=== PATIENT | female | born 1950 | race Caucasian/White ===

== ENCOUNTER 2016-12-02 17:39 | Observation (INO) | payer OTHER ==
[2016-12-02 18:19] VITALS: O2SAT 99
[2016-12-02] MEDS ORDERED: Sodium Chloride 0.9% 1,000 ML IV STA (19:15)
--- NOTE | 2016-12-02 19:19 | C.PDOC ---
History Of Present Illness 66 y/o F c PMHx HTN, DM, s/p cholecystectomy p/w abdominal pain x 1 day. Pain is epigastric, deep, unable to be characterized, associated with NBNB vomiting x 3. Reports normal BM last night. Denies fever, chills, chest pain, dyspnea, dysuria. Time Seen by Provider: 12/02/16 19:08 Chief Complaint (Nursing): Abdominal Pain Past Medical History Vital Signs: Last Vital Signs Temp 98 F 12/02/16 18:13 Pulse 94 H 12/02/16 18:13 Resp 22 12/02/16 18:13 BP 182/99 H 12/02/16 18:13 Pulse Ox 99 12/02/16 21:59 - Medical History PMH: HTN (not on meds due to lack of insurance) Surgical History: Cholecystectomy (2016) Family History: States: No Known Family Hx - Social History Hx Alcohol Use: No Hx Substance Use: No Review Of Systems Except As Marked, All Systems Reviewed And Found Negative. Constitutional: Negative for: Fever Cardiovascular: Negative for: Chest Pain Physical Exam - Physical Exam Additional Physical Exam Comments: Constitutional: No acute distress. Head: Normocephalic. Atraumatic. Eyes: PERRL. EOMI. ENT: Moist mucous membranes. Neck: Supple. Cardiovascular: Regular rate. Radial pulses 2+ bilaterally. Chest: No tenderness. Respiratory: Clear to auscultation bilaterally. GI: Epigastric tenderness with guarding. Soft. Nondistended. Back: No CVA tenderness. Musculoskeletal: No tenderness or swelling of extremities. Skin: No rash. Neurologic: Alert, no focal deficit. ED Course And Treatment - Laboratory Results Result Diagrams: 12/02/16 19:25 12/02/16 19:25 O2 Sat by Pulse Oximetry: 99 Medical Decision Making Medical Decision Making: IMPRESSION: Fatty liver, no acute solid visceral abnormality; cholecystectomy ; ileus and possible enteritis, no CT findings of appendicitis or diverticulitis Labs unremarkable. Will discharge home on antibiotics, instructed to f/u with PMD, instructed to return to ER for worsening pain, fever, vomiting, dyspnea, chest pain, or any other problem. ED OBSERVATION Discharge: Yes Date of observation admission: 12/02/16 Time of observation admission: 19:15 - Observation admission statement Patient is being placed in observation because:: Chief complaint - Goals of Observation Goals of observation are:: CT - Progress Note Progress Note: [address] returned. Disposition - Disposition Disposition: HOME/ ROUTINE Disposition Time: 19:15 Condition: STABLE - Clinical Impression Clinical Impression: Enteritis - Scribe Statement The provider has reviewed the documentation as recorded by the Scribe Elena Hernadez All medical record entries made by the Scribe were at my direction and personally dictated by me. I have reviewed the chart and agree that the record accurately reflects my personal performance of the history, physical exam, medical decision making, and the department course for this patient. I have also personally directed, reviewed, and agree with the discharge instructions and disposition.
[2016-12-02 19:27] LABS: BASO % 0.4 % (0.0-2.0); EOS # 0.1 K/uL (0.0-0.7); HEMATOCRIT 44.6 % (34.0-47.0); LYMPH # 0.9 K/uL (1.0-4.3); LYMPH % 12.7 % (20.0-40.0); MEAN CELL VOLUME 86.7 fL (81.0-99.0); MEAN CORPUSCULAR HEMOGLOBIN 28.3 pg (27.0-31.0); MEAN CORPUSCULAR HGB CONC 32.7 g/dL (33.0-37.0); MEAN PLATELET VOLUME 10.1 fL (7.2-11.7); MONO # 0.3 K/uL (0.0-0.8); MONO % 4.1 % (0.0-10.0); NRBC % 0.1 % (0.0-2.0); RED CELL DISTRIBUTION WIDTH 13.6 % (11.5-14.5); WHITE BLOOD COUNT 7.1 K/uL (4.8-10.8)
[2016-12-02 19:36] LABS: CHLORIDE 98 mmol/L (98-107); SODIUM 135 mmol/L (132-148)
[2016-12-02 19:38] LABS: BILIRUBIN,TOTAL 0.7 mg/dL (0.2-1.3); GFR AFRICAN-AMERICAN > 60
[2016-12-02 19:39] LABS: ALB/GLOB RATIO 1.1 (1.0-2.1); ALKALINE PHOSPHATASE 145 U/L (38-126); ALT/SGPT 27 U/L (9-52); AST/SGOT 25 U/L (14-36); BLOOD UREA NITROGEN 11 mg/dL (7-17); CALCIUM 8.8 mg/dl (8.6-10.4); CARBON DIOXIDE 26 mmol/L (22-30); GLUCOSE,RANDOM 239 mg/dL (65-105); RBC URINE 1 /hpf (0-3); TOTAL PROTEIN 7.5 g/dL (6.3-8.3); TRANSITIONAL EPITHIAL < 1 /hpf (0-3); URINE BACTERIA RARE (<OCC); URINE BILIRUBIN NEGATIVE (NEGATIVE); URINE BLOOD NEGATIVE (NEGATIVE); URINE COLOR Yellow (YELLOW); URINE GLUCOSE (UA) 3+ mg/dL (Normal); URINE KETONE NEGATIVE (NEGATIVE); URINE LEUKOCYTE ESTERASE TRACE Leu/uL (Negative); URINE PROTEIN NEGATIVE (NEGATIVE); URINE UROBILINOGEN NORMAL mg/dL (0.2-1.0); WBC URINE 6 /hpf (0-5)
[2016-12-02] MEDS ORDERED: Iohexol 300 100 ML IJ ONE (19:50)
--- NOTE | 2016-12-02 21:50 | CT ---
EXAM: CT Abdomen and Pelvis With Intravenous Contrast EXAM DATE/TIME: 12/02/2016 7:15 PM CLINICAL HISTORY: 66 years old, female; Pain; Abdominal pain; Flank; Other: General pain, vomiting; Additional info: Abd pain, vomiting TECHNIQUE: Axial computed tomography images of the abdomen and pelvis with intravenous contrast. All CT scans at this facility use one or more dose reduction techniques, viz.: automated exposure control; ma/kV adjustment per patient size (including targeted exams where dose is matched to indication; i.e. head); or iterative reconstruction technique. Coronal and sagittal reformatted images were created and reviewed. CONTRAST: 100 mL of OMNIPAQUE 350 administered intravenously. COMPARISON: There are no prior studies for comparison. FINDINGS: Lower thorax: Heart size is at the upper limits of normal. There is minimal atelectasis at the lung bases. There is a small hiatal hernia ABDOMEN: Liver: There is fatty infiltration of the liver. Gallbladder and bile ducts: Gallbladder is surgically absent. Common bile duct is unremarkable. Pancreas: Pancreas is mildly atrophic. Spleen: Spleen is unremarkable. There is an accessory spleen in the left upper quadrant. Adrenals: unremarkable Kidneys and ureters: unremarkable Stomach and bowel: Stomach is almost empty. Rotation is normal. Proximal and mid small bowel are mildly distended. There scattered air-fluid levels. There is mild fold thickening. Distention decreases distally.Appendix and terminal ileum are unremarkable. There is moderate stool in the colon. There is scattered diverticulosis. Appendix: See stomach and bowel PELVIS: Bladder: unremarkable Reproductive: Uterus and adnexal structures are unremarkable. ABDOMEN and PELVIS: Intraperitoneal space: There is no free air or free fluid. Bones/joints: There Are degenerative changes in the osseus structures. Soft tissues: There is a small fat containing umbilical hernia. Vasculature: There are vascular calcifications. Lymph nodes: There is no pathologic adenopathy. IMPRESSION: Fatty liver, no acute solid visceral abnormality; cholecystectomy; ileus and possible enteritis, no CT findings of appendicitis or diverticulitis Additional findings as described above.
[2016-12-02 23:28] VITALS: BP 167/90; PULSE 81; RESP 16; TEMP 98.3
== END 2016-12-02 23:22 | disposition home or self-care (01) ==
LOC: C.ER 17:39 → C.9OBSV 19:15
PROVIDERS: ADMIT Student in an Organized Health Care Education/Training Program; ATTEND Student in an Organized Health Care Education/Training Program
DX: K52.9 Noninfective gastroenteritis and colitis, unspecified (principal); K76.0 Fatty (change of) liver, not elsewhere classified; I10 Essential (primary) hypertension; E11.9 Type 2 diabetes mellitus without complications
CPT/HCPCS: 74177; 80053; 81001; 83690; 85025; 87086; 87181; 96374; 96375; 99283; G0378; J2405; J7040; Q9967

== ENCOUNTER 2016-12-23 12:59 | Emergency (ER) | payer OTHER ==
[2016-12-23 13:04] VITALS: PULSE 62; TEMP 97.4
[2016-12-23 15:38] VITALS: RESP 18; O2SAT 99
--- NOTE | 2016-12-23 16:20 | C.PDOC ---
History Of Present Illness Pt was sent from the clinic because she was found to be hypertensive. Time Seen by Provider: 12/23/16 13:42 Chief Complaint (Nursing): High Blood Pressure History Per: Patient Onset/Duration Of Symptoms: Other (today) Current Symptoms Are (Timing): Still Present Associated Symptoms: Headache (mild) Severity: Moderate Exacerbating Factor(s): Pos: None Additional History Per: Prior Records Past Medical History Reviewed: Historical Data, Nursing Documentation, Vital Signs Vital Signs: Last Vital Signs Temp 97.4 F L 12/23/16 13:03 Pulse 62 12/23/16 13:03 Resp 18 12/23/16 15:37 BP 182/81 H 12/23/16 15:46 Pulse Ox 99 12/23/16 15:37 - Medical History PMH: HTN Surgical History: Cholecystectomy (2016) Family History: States: Unknown Family Hx - Social History Hx Alcohol Use: No Hx Substance Use: No - Immunization History Hx Tetanus Toxoid Vaccination: No Hx Influenza Vaccination: No Review Of Systems Except As Marked, All Systems Reviewed And Found Negative. Constitutional: Negative for: Fever, Weakness Eyes: Negative for: Vision Change Cardiovascular: Negative for: Chest Pain Respiratory: Negative for: Shortness of Breath Gastrointestinal: Negative for: Vomiting, Abdominal Pain Genitourinary: Negative for: Dysuria Musculoskeletal: Negative for: Neck Pain Skin: Negative for: Rash Neurological: Negative for: Weakness, Numbness, Incoordination, Change in Speech , Confusion, Seizures, Altered Mental Status Physical Exam - Physical Exam Appears: Non-toxic, No Acute Distress Skin: Normal Color, Warm, Dry, No Rash Head: Atraumatic, Normacephalic Eye(s): bilateral: Normal Inspection, PERRL, EOMI Neck: Normal ROM, Supple Cardiovascular: Rhythm Regular Respiratory: Normal Breath Sounds, No Accessory Muscle Use Gastrointestinal/Abdominal: Soft, No Tenderness Back: No CVA Tenderness Extremity: Normal ROM, No Pedal Edema, No Calf Tenderness Neurological/Psych: Oriented x3, Normal Speech, Normal Cognition, Normal Motor, Normal Sensation ED Course And Treatment O2 Sat by Pulse Oximetry: 99 Pulse Ox Interpretation: Normal Progress - Interventions Interventions:: Observation - Medications Administered Oral: Acetaminophen, Antihypertensive - Data Reviewed Data Reviewed: Old records - Patient Status Patient status: Mostly improved - Continuity of Care Discussed patient case with:: Patient, ED Nurse - Patient Plan Patient Plan: Discharge, F/U with PCP, Continue present meds Disposition Counseled Patient/Family Regarding: Studies Performed, Diagnosis, Need For Followup, Rx Given - Disposition Referrals: [facility] [Outside] Disposition: HOME/ ROUTINE Disposition Time: 16:21 Condition: IMPROVED Additional Instructions: Follow up in the clinic for further evaluation and treatment. Return to the ER if you develop weakness, numbness, chest pain, shortness of breath, worsening of symptoms or if you have any other concerns. Prescriptions: hydroCHLOROthiazide [Hydrodiuril] 25 mg PO DAILY #30 tab Instructions: Hypertension (ED) Forms: [employer] (Czech) Print Language: GERMAN - Clinical Impression Clinical Impression: Hypertensive urgency
[2016-12-23 16:29] VITALS: BP 147/72
== END 2016-12-23 16:25 | disposition home or self-care (01) ==
LOC: C.ER 12:59
DX: I16.0 Hypertensive urgency (principal)

== ENCOUNTER 2017-01-22 03:49 | Emergency (ER) | payer OTHER ==
[2017-01-22 03:49] VITALS: BMI 31.7
--- NOTE | 2017-01-22 03:53 | C.PDOC ---
History Of Present Illness Patient presents to the ER with a complaint of a dull, achy, nonradiating left chest wall pain; associated with nausea and vomiting. Patient states she felt her blood pressure was high and note her blood sugar is high and not well controlled. Denies fever or chills. Time Seen by Provider: 01/22/17 03:52 History Per: Patient History/Exam Limitations: no limitations Onset/Duration Of Symptoms: Hrs Current Symptoms Are (Timing): Still Present Severity: Mild Pain Scale Rating Of: 4 Quality: Dull, Aching Associated Symptoms: Nausea. denies: Dyspnea, Diaphoresis, Syncope Modifying Factors: None Exacerbating Factors: None Alleviating Factors: None Recent travel outside of the [place]: No Past Medical History Reviewed: Historical Data, Nursing Documentation, Vital Signs Vital Signs: Last Vital Signs Temp 98.3 F 01/22/17 05:33 Pulse 75 01/22/17 05:33 Resp 14 01/22/17 05:33 BP 115/65 01/22/17 05:33 Pulse Ox 98 01/22/17 05:33 - Medical History PMH: HTN Surgical History: Cholecystectomy (2016) Family History: States: Unknown Family Hx - Social History Hx Alcohol Use: No Hx Substance Use: No - Immunization History Hx Tetanus Toxoid Vaccination: No Hx Influenza Vaccination: No Review Of Systems Constitutional: Negative for: Fever, Chills Cardiovascular: Positive for: Chest Pain Gastrointestinal: Positive for: Nausea, Vomiting Physical Exam - Physical Exam Appears: Non-toxic, Other (Anxious) Skin: Warm, Dry Head: Normacephalic Eye(s): bilateral: Normal Inspection Oral Mucosa: Moist Neck: Trachea Midline, Supple Chest: Symmetrical, Tenderness (to palpation) Cardiovascular: Rhythm Regular Respiratory: No Rales, No Rhonchi, No Wheezing Gastrointestinal/Abdominal: Soft, No Tenderness Extremity: Normal ROM Extremity: Bilateral: Atraumatic Neurological/Psych: Oriented x3, Normal Speech, Normal Cognition Gait: Steady ED Course And Treatment - Laboratory Results Result Diagrams: 01/22/17 04:46 01/22/17 04:46 ECG: Interpreted By Me, Viewed By Me ECG Rhythm: Sinus Rhythm (72) ECG Interpretation: Normal Interpretation Of ECG: Nonspecific ST/T changes O2 Sat by Pulse Oximetry: 99 (Room air) Pulse Ox Interpretation: Normal - Radiology CXR: Interpreted by Me, Viewed By Me CXR Interpretation: No: Infiltrates, Fracture, Pnemothorax Progress Note: EKG, blood work, CXR, and urinalysis ordered. Aspirin administered. Pt had an essentially nl echo on 01/02/17 -: Left ventricle systolic function is normal. The Ejection Fraction is 60-65%. Hypertensive heart disease.. Diastolic dysfunction. No aortic regurgitation is present. Mitral regurgitation is trace. There is mild tricuspid regurgitation. There is no pulmonary hypertension. There is no pulmonic valvular regurgitation. Reevaluation Time: 05:48 Reassessment Condition: Improved Disposition Counseled Patient/Family Regarding: Studies Performed, Diagnosis, Need For Followup - Disposition Referrals: [facility] [Outside] [facility] [Outside] Disposition: HOME/ ROUTINE Disposition Time: 03:53 Condition: FAIR Additional Instructions: Please return if symptoms recur Prescriptions: Azithromycin [Zithromax Tri-Remberto] 500 mg PO DAILY #3 tablet Instructions: Costochondritis (ED), Acute Bronchitis (ED) Print Language: SLOVENIAN - Clinical Impression Clinical Impression: Costochondral chest pain, Bronchitis - Scribe Statement The provider has reviewed the documentation as recorded by the Scribjuana Clemente All medical record entries made by the Scribjuana were at my direction and personally dictated by me. I have reviewed the chart and agree that the record accurately reflects my personal performance of the history, physical exam, medical decision making, and the department course for this patient. I have also personally directed, reviewed, and agree with the discharge instructions and disposition.
[2017-01-22] MEDS ORDERED: Aspirin 325 mg EC Tablets PO STA (03:54)
[2017-01-22] MEDS ORDERED: Aspirin 325 mg EC Tablets PO ONE (03:59)
[2017-01-22 04:18] LABS: INR 1.1
[2017-01-22 05:02] LABS: BASO % 0.2 % (0.0-2.0); EOS # 0.1 K/uL (0.0-0.7); EOS % 0.9 % (0.0-4.0); HEMATOCRIT 39.7 % (34.0-47.0); LYMPH # 2.5 K/uL (1.0-4.3); LYMPH % 22.6 % (20.0-40.0); MEAN CELL VOLUME 85.9 fL (81.0-99.0); MEAN CORPUSCULAR HEMOGLOBIN 28.9 pg (27.0-31.0); MEAN CORPUSCULAR HGB CONC 33.6 g/dL (33.0-37.0); MEAN PLATELET VOLUME 8.7 fL (7.2-11.7); MONO # 0.6 K/uL (0.0-0.8); MONO % 5.1 % (0.0-10.0); RED CELL DISTRIBUTION WIDTH 13.9 % (11.5-14.5); WHITE BLOOD COUNT 11.1 K/uL (4.8-10.8)
[2017-01-22 05:05] LABS: CHLORIDE 97 mmol/L (98-107); SODIUM 134 mmol/L (132-148)
[2017-01-22 05:07] LABS: ALB/GLOB RATIO 1.1 (1.0-2.1); ALKALINE PHOSPHATASE 89 U/L (38-126); ALT/SGPT 27 U/L (9-52); AST/SGOT 24 U/L (14-36); BILIRUBIN,TOTAL 0.5 mg/dL (0.2-1.3); BLOOD UREA NITROGEN 17 mg/dL (7-17); CARBON DIOXIDE 25 mmol/L (22-30); GFR AFRICAN-AMERICAN > 60; TOTAL PROTEIN 8.1 g/dL (6.3-8.3)
[2017-01-22 05:08] LABS: CALCIUM 9.7 mg/dl (8.6-10.4); GLUCOSE,RANDOM 136 mg/dL (65-105)
[2017-01-22 05:34] VITALS: BP 115/65; PULSE 75; RESP 14; TEMP 98.3
[2017-01-22 05:51] VITALS: O2SAT 99
--- NOTE | 2017-01-22 10:46 | RAD ---
PROCEDURE: CHEST RADIOGRAPH, 1 VIEW HISTORY: chest pain COMPARISON: None available. FINDINGS: LUNGS: No focal infiltrate or effusion. Biapical pleural thickening with upper lobe granulomatous changes. Productive change at the end of the 1st right rib. PLEURA: No pneumothorax or pleural fluid seen. CARDIOVASCULAR: Normal. OSSEOUS STRUCTURES: No significant abnormalities. VISUALIZED UPPER ABDOMEN: Normal. OTHER FINDINGS: None. IMPRESSION: No focal infiltrate or effusion. Biapical pleural thickening with upper lobe granulomatous changes. Productive change at the end of the 1st right rib.
--- NOTE | 2017-01-23 21:21 | CARD ---
APPROVED REPORT EKG Measurement Heart [id number] <Conclusion> Normal sinus rhythm Normal ECG
== END 2017-01-22 06:13 | disposition home or self-care (01) ==
LOC: C.ER 03:49
DX: J40 Bronchitis, not specified as acute or chronic (principal); R07.89 Other chest pain

== ENCOUNTER 2017-07-30 09:09 | Day surgery (SDC) | payer OTHER ==
[2017-07-30 10:10] VITALS: RESP 18
[2017-07-30 12:46] VITALS: BP 139/58; PULSE 60; TEMP 97.8; O2SAT 100
[2017-07-30 13:06] VITALS: BMI 25.6
--- NOTE | 2017-07-30 15:54 | US ---
PROCEDURE: Date of Procedure: 07/30/2017 PROCEDURE: 1. Ultrasound guided FNA of left thyroid nodule, CPT 87811 2. Ultrasound guided FNA of RIGHT thyroid nodule, 3. Ultrasound guidance for FNA, 88719 Medications: 4cc 1% Lidocaine HISTORY: Enlarged thyroid nodules. TECHNIQUE: Following informed consent and procedure time-out, a limited ultrasound patient's neck confirmed the presence of a 2.1 cm complex solid left thyroid nodule. Also present is a complex, predominantly solid right thyroid nodule measuring 2 cm. After the patient's neck was prepped and draped in the usual sterile fashion, the skin was anesthetized with 1% lidocaine. Ultrasound-guided fine needle aspiration was then performed of the dominant left thyroid nodule. A total of 5 passes were made into the nodule with 25 gauge needle under ultrasound guidance. The FNA specimen was sent for routine pathology. Ultrasound guided FNA was then performed of the dominant right thyroid nodule. Again 5 passes were made into the nodule with 25 gauge needle. The FNA specimen was sent for routine pathology. Post biopsy ultrasound showed no hematoma. IMPRESSION: Ultrasound-guided FNA of the dominant right and left thyroid nodules.
--- NOTE | 2017-07-30 15:56 | CP.SDSHP ---
Same Day Surgery H & P - History Proposed Procedure: US guided FNA of thyroid nodules Pre-Op Diagnosis: thyroid nodules - Allergies Allergies: Allergies No Known Allergies Allergy (Verified 01/22/17 04:06) - Physical Exam Vital Signs: Vital Signs 07/30/17 07/30/17 09:41 12:37 Temperature 97.4 F L 97.8 F Pulse Rate 55 L 60 Respiratory 18 18 Rate Blood Pressure 124/78 139/58 L O2 Sat by Pulse 98 100 Oximetry Mental Status: Alert & Oriented x3 Neuro: WNL Heart: WNL - Impression Impression: Pt with bilateral thyroid nodules referred for FNA. Plan US guided FNA. Pt. Evaluated Today:Candidate for Anesthesia & Procedure: No - Date & Time Date: 07/30/17 Time: 11:00 Short Stay Discharge - Short Stay Discharge Admitting Diagnosis/Reason for Visit: E04.2-MULTINODULAR THYROID Disposition: HOME/ ROUTINE
--- NOTE | 2017-07-30 15:57 | PCM.SURG1 ---
Surgeon's Initial Post Op Note - Surgeon's Notes Surgeon: Aydin Quiroga MD Rice Cleaning Machine Tender: NONE Type of Anesthesia: Local Pre-Operative Diagnosis: Thyroid nodules Operative Findings: 2.1 cm left and 2 cm right thyroid nodule Post-Operative Diagnosis: Thyroid nodules Operation Performed: US guided FNA of thyroid nodules Specimen/Specimens Removed: 25 g FNA x 5 passes per nodule Estimated Blood Loss: EBL {In ML}: 0 Blood Products Given: N/A Drains Used: No Drains Post-Op Condition: Good Date of Surgery/Procedure: 07/30/17 Time of Surgery/Procedure: 11:30
== END 2017-07-30 12:55 | disposition home or self-care (01) ==
LOC: C.SPRAD 09:09
PROVIDERS: ATTEND Radiology Vascular & Interventional Radiology
DX: E04.2 Nontoxic multinodular goiter (principal)

== ENCOUNTER 2018-06-16 11:23 | Outpatient (CLI) | payer OTHER | END 2018-06-16 11:24 | disposition home or self-care (01) | LOC: C.MAMMO 11:23 | DX: Z12.31 Encounter for screening mammogram for malignant neoplasm of breast (principal) ==